=== PATIENT | male | born 1945 | race Caucasian/White ===

== ENCOUNTER 2020-03-03 15:15 | Outpatient (CLI) | payer MEDICARE, OTHER | END 2020-03-03 23:59 | disposition home or self-care (01) | LOC: RAD 15:15 | DX: K21.9 Gastro-esophageal reflux disease without esophagitis (principal); R13.11 Dysphagia, oral phase; R13.14 Dysphagia, pharyngoesophageal phase; R49.0 Dysphonia | CPT/HCPCS: 74230 ==

== ENCOUNTER 2022-05-02 21:30 | Emergency (ER) | payer MEDICARE, OTHER ==
[~2022-05-02] VITALS: Ht 177.8 cm; Wt 87.3 kg
[2022-05-03 00:53] VITALS: BP 168/90
== END 2022-05-03 00:45 | disposition home or self-care (01) ==
LOC: ER 21:31
DX: M79.602 Pain in left arm (principal); R20.0 Anesthesia of skin; R61 Generalized hyperhidrosis; M79.605 Pain in left leg; I11.9 Hypertensive heart disease without heart failure; E78.00 Pure hypercholesterolemia, unspecified
CPT/HCPCS: 93005; 99284